=== PATIENT | female | born 1935 | race Caucasian/White ===

== ENCOUNTER 2016-12-12 08:55 | Emergency (ER) | payer MEDICARE, BC ==
[~2016-12-12] VITALS: Ht 157.5 cm; Wt 58.0 kg
[~2016-12-12 08:55] MED LIST: FLUARIX QUADRIV1 IN1 IM; FLUARIX QUADRIV1 INJ IM; FLUZONE SPLT1 M1 IM
[2016-12-12] MEDS ORDERED: CIPROFLOXACN500 MG PO (09:39)
[2016-12-12 09:58] VITALS: BP 135/60
== END 2016-12-12 09:55 | disposition home or self-care (01) ==
LOC: ED 08:55
DX: S60.352A Superficial foreign body of left thumb, initial encounter (principal); W45.8XXA Other foreign body or object entering through skin, initial encounter; Y93.H2 Activity, gardening and landscaping; Y92.007 Garden or yard of unspecified non-institutional (private) residence as the place of occurrence of the external cause